=== PATIENT | male | born 1965 | race Caucasian/White ===

== ENCOUNTER 2018-01-19 10:17 | Observation (INO) ==
[2018-01-19] MEDS ORDERED: ASPIRIN 81 MG (BABY) CHEWABLE TABLET PO ONE (10:50)
[2018-01-19] MEDS ORDERED: Sodium Chloride 0.9% 1,000 ML PRIMARY IV ONE (10:50)
--- NOTE | 2018-01-19 11:00 | EKG ---
Measurements Intervals [place] Rate: 89 P: ND: 0 QRS: 69 QRSD: 95 T: 71 QT: 332 QTc: 379 Interpretive Statements ATRIAL FIBRILLATION ABNORMAL RHYTHM ECG No previous ECG available for comparison Electronically Signed On 01-19-18 12:22:43 MDT by Tutu Tijerina [email or web address]
[2018-01-19 11:31] LABS: BASOPHILS # (AUTO) 0.05 10*3/UL; BASOPHILS % (AUTO) 0.6 % (0-1); EOSINOPHILS # (AUTO) 0.18 10*3/UL; Hematocrit [HCT] 46.2 % (42.0-52.0); Hemoglobin [HGB] 16.1 g/dL (14.0-18.0); LYMPHOCYTES # (AUTO) 2.44 10*3/uL; MEAN CORPUSCULAR HEMOGLOBIN 31.8 PG (27-31); MEAN CORPUSCULAR HGB CONC 34.8 g/dL (33-37); MEAN CORPUSCULAR VOLUME 91.1 FL (80-90); MEAN PLATELET VOLUME 9.8 FL (7.4-12.2); MONOCYTES # (AUTO) 0.77 10*3/UL (0.3-0.8); MONOCYTES % (AUTO) 8.5 % (5-15); NEUTROPHILS % (AUTO) 61.8 % (50-80); RED BLOOD COUNT 5.07 10^6/uL (4.70-6.10)
[2018-01-19 11:35] LABS: BLOOD UREA NITROGEN 17 mg/dL (7-22); SERUM ALBUMIN 4.2 g/dL (3.5-4.8)
[2018-01-19 11:36] LABS: PLATELET MORPHOLOGY COMMENT NORMAL MORPHOLOGY (NORM); RBC MORPHOLOGY COMMENT NORMAL MORPHOLOGY (NORM); WBC MORPHOLOGY COMMENT NORMAL MORPHOLOGY (NORM)
--- NOTE | 2018-01-19 12:05 | DI ---
CT Head WO Contrast 01/19/2018 10:50 AM History: [facility] ^loss of consciousness Comparison: None. Procedure: Noncontrast axial, sagittal, and coronal CT images through the head were obtained. Findings: There is no intracranial hemorrhage or extra-axial fluid collection. The ventricles are nor mal in size and configuration. There is normal john-white differentiation without focal mass or mass- effect. There is mild mucosal thickening of the ethmoid air cells without sinus air-fluid levels. Orb its and facial soft tissues are unremarkable. Review of the osseous structures shows no depressed ca lvarial fracture or aggressive osseous lesion. The mastoid air cells are clear. Impression: No acute intracranial findings.
[2018-01-19 12:15] LABS: BILIRUBIN,URINE SMALL (NEG); CLARITY,URINE CLEAR (CLEAR); COLOR,URINE YELLOW (Y); GLUCOSE, URINE (UA) NEGATIVE (NEG); OCCULT BLOOD,URINE NEGATIVE (NEG); PH,URINE 5.5 (5.0-8.5); PROTEIN,URINE NEGATIVE (NEG); UROBILINOGEN,URINE 0.2 EU/dL (0.2)
[2018-01-19 12:29] LABS: AMPHETAMINE SCREEN NEGATIVE (NEG); CANNABINOID SCREEN,URINE NEGATIVE (NEG); COCAINE SCREEN NEGATIVE (NEG); METHADONE URINE SCREEN NEGATIVE (NEG); METHAMPHETAMINES SCREEN,URINE NEGATIVE (NEG); OPIATE SCREEN,URINE NEGATIVE (NEG); URINE SAMPLE TYPE VOIDED SPECIMEN; URINE SPECIFIC GRAVITY - MAN 1.024
--- NOTE | 2018-01-19 13:36 | PDOC ---
HPI - History of Present Illness History of Present Illness: This is a very nice 52-year-old gentleman who was brought into the ER because of a syncopal episode at work witnessed patient and was unresponsive and after he came about he did not remember anything of what happened. In the ER was found to have atrial fibrillation on EKG. I was called by Dr. Garcia to admit the patient. 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 He has known about his atrial fibrillation for about 2 years but has never taken any medication for. It. Apparently according to the ER nurses he also had 2 more syncopal episode in the emergency room before I seen him. After he was brought up to the floor he had a witnessed seizure in his room which lasted about 60 seconds and after that he also did not remember anything. His CPKs were within normal limits troponins are within normal limits. I did discuss the case with Dr. English neurology at [facility]. He recommended transfer to [facility] because of patient needing EEG, an echo, which I cannot perform here and also a cardiology workup to delineate if the causes of syncope which could be life-threatening are related to his seizures or his heart. I discussed this with the patient which agrees fully to be transferred and be worked up and come to the bottom of it since it is not the first time this has happened. 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 He just moved here from [place]. He was given 1500 mg of Ke[address]ra under Dr. English recommendation he was accepted by Dr. English and Dr. James of the hospitalist there was on the line. He was also given 1 dose of Cardizem 120 and eliquis 5 mg. Past Medical History Medical History: Atrial fibrillation, syncopal episodes Tobacco Use: Current Every Day Smoker Do you dip or chew tobacco: No In the Past 12 Months, Have Used or Abuse Any of the Following Substance: Methamphetamines Medication / Allergies Home Medications: Home Medications 3 Medication Instructions Recorded Confirmed Type Aspirin 325 mg PO BID 01/19/18 01/19/18 History Allergies/Adverse Reactions: Allergies 3 Allergy/AdvReac Type Severity Reaction Status Date / Time No Known Allergies Allergy Verified 01/19/18 11:33 Review of Systems - Review of Systems All Systems: Reviewed & No Additional Complaints Except as Stated - Mouth/Throat Mouth/Throat Exam: DENIES: Negative System Review, Dental Problems, Oral Ulcers , Sore Throat, Hoarseness, Dysphagia, Dental Pain, Other, See HPI - Cardiovascular Cardiovascular: REPORTS: Syncope - Gastrointestinal Gastrointestinal / Abdominal: DENIES: Negative System Review, Nausea, Vomiting, Diarrhea, Constipation, Abdominal Pain, Bloody Stool, Poor Appetite, Heartburn, Regurgitation, Bloating, Lactose Intolerance, Melena, Bright Red Blood per Rectum, Other, See HPI - Genitourinary Genitourinary: DENIES: Negative System Review, Pain, Burning, Hematuria, Incontinence, Urgency, Hesitant Stream, Decreased Stream, Nocutria, Discharge, Sexual Dysfunction, Other, See HPI - Neurological Neurologic: REPORTS: Seizures Exam - Vitals Vital Signs: Vital Signs Temperature 98.2 F Temperature Source Temporal Artery Scan Pulse Rate [Telemetry] 107 Pulse Rate [Apical] 107 Respiratory Rate 18 Blood Pressure [Left Arm] 123/111 Pulse Ox 96 Oxygen Delivery Method Room Air Height 6 ft 1 in Weight 214 lb - General General Appearance: No Acute Distress, Cooperative - Head Head Exam: Normal Inspection, Normocephalic, Atraumatic - Eye Eye Exam: POSITIVE: Normal Appearance, PERRL, EOMI, No Scleral Icterus - Neck Neck Exam: Normal Inspection, Full ROM, No Tenderness, No Lymphadenopathy, No Thyromegaly, JVP is not Raised - Respiratory Respiratory Exam: POSITIVE: Clear to Auscultation - Bilaterally, Breathing Non Labored, Normal To Percussion, Normal to Percussion and Palpation - Cardiovascular Cardiovascular Exam: POSITIVE: No Murmur, No Clicks, No Gallops, Irregular Rhythm, +S1, +S2 Additional Cardiovascular Details: Irregularly irregular - GI/Abdominal GI/Abdominal Exam: POSITIVE: Normal Bowel Sounds, Non Tender, Non Distended, Soft, No Masses, No Hepatomegaly, No Splenomegaly, No Organomegaly - Extremities Extremities Exam: POSITIVE: No Clubbing Present, No Edema Present, No Cyanosis Present - Neurological Neurological Exam: POSITIVE: Alert, Oriented x 3, No Facial Droop, Speech Intact / Clear, Moves All Extremities Equally Results - Labs CBC and BMP: 01/19/18 11:04 01/19/18 11:04 Assessment and Plan - Patient Problems (1) Atrial fibrillation Current Visit: Yes Status: Acute Comment: Cardizem by mouth one 20 mg, and eliquisfor stroke prophylaxis Code(s): I48.91 - Unspecified atrial fibrillation (2) Syncopal episodes Current Visit: Yes Status: Acute Comment: form maker Code(s): R55 - Syncope and collapse (3) Seizure disorder Current Visit: Yes Status: Acute Code(s): G40.909 - Epilepsy, unspecified, not intractable, without status epilepticus - Assessment / Plan Additional Assessment/Plan Details: Please see HPI
[2018-01-19] MEDS ORDERED: LIDOCAINE W/ SODIUM BICARB 0.5 ML SYR SUBD PRN (14:38)
[2018-01-19] MEDS ORDERED: DILTIAZEM HCL CD 120 MG CAP PO SCH (14:38)
[2018-01-19] MEDS ORDERED: Apixaban Tab 2.5 MG TABLET PO SCH (14:38)
[2018-01-19 15:09] VITALS: RESP 20
[2018-01-19] MEDS ORDERED: LORazepam 2 MG/1 ML VIAL IVP ONE (15:36)
[2018-01-19] MEDS ORDERED: LORazepam 1 MG TABLET PO ONE (15:36)
[2018-01-19] MEDS ORDERED: Sodium Chloride 0.9% 100 ML IV ONE (15:53)
--- NOTE | 2018-01-19 16:39 | DCSUMMARY ---
Hospitalization Summary Hospital Course: Final Discharge Diagnosis: Current Visit Problems Problem Status Onset Code Atrial fibrillation Acute I48.91 Syncopal episodes Acute R55 Seizure disorder Acute G40.909 Diagnostic Data, Laboratory Data, and Procedures of Signifigance: Laboratory Results 01/19/18 01/19/18 01/19/18 Range/Units 11:04 11:04 11:04 WBC 9.06 (4.8-10.8) 10^3/uL RBC 5.07 (4.70-6.10) 10^6/uL Hgb 16.1 (14.0-18.0) g/dL Hct 46.2 (42.0-52.0) % MCV 91.1 H (80-90) FL MCH 31.8 H (27-31) PG MCHC 34.8 (33-37) g/dL RDW Std Deviation 40.9 (39-50) fL RDW Coeff of Pattie 12.6 (11.5-14.5) % Plt Count 284 (140-350) 10*3/uL MPV 9.8 (7.4-12.2) FL Immature Gran % (Auto) 0.2 (0-5) % Neut % (Auto) 61.8 (50-80) % Lymph % (Auto) 26.9 (10-50) % Hendricks % (Auto) 8.5 (5-15) % Eos % (Auto) 2.0 (0-8) % Baso % (Auto) 0.6 (0-1) % Immature Gran # (Auto) 0.02 10*3/UL Neut # (Auto) 5.60 10*3/UL Lymph # (Auto) 2.44 10*3/uL Hendricks # (Auto) 0.77 (0.3-0.8) 10*3/UL Eos # (Auto) 0.18 10*3/UL Baso # (Auto) 0.05 10*3/UL WBC Morphology Comment Normal morphology (NORM) Plt Morphology Comment Normal morphology (NORM) RBC Morph Comment Normal morphology (NORM) PT 10.7 (9.7-11.4) secs INR 1.04 (0.00-5.90) N/A Sodium 140 (135-145) meq/L Potassium 4.3 (3.8-5.2) meq/L Chloride 109 (98-112) meq/L Carbon Dioxide 22 L (23-33) meq/L Anion Gap 9 (5-20) BUN 17 (7-22) mg/dL Creatinine 1.0 (0.70-1.50) mg/dL Estimated GFR > 60 (>60 ml/min/1.73m(2)) BUN/Creatinine Ratio 17.00 (6-20) Glucose 112 H (78-110) mg/dL Calculated Osmolality 292.0 (267-292) mOsm/kg Calcium 9.8 (8.7-10.7) mg/dL Magnesium (1.6-2.4) mg/dL Total Bilirubin 0.6 (0.3-1.2) mg/dL AST 18 L (21-57) IU/L ALT 33 (21-72) IU/L Alkaline Phosphatase 68 (38-126) IU/L Total Creatine Kinase 114 (55-170) IU/L CK-MB (CK-2) (0.00-5.00) NG/ML Troponin I (< 0.040) ng/mL Total Protein 7.1 (6.1-8.0) g/dL Albumin 4.2 (3.5-4.8) g/dL Globulin 2.9 (2.50-4.10) g/dL Albumin/Globulin Ratio 1.40 (1.3-2.0) mg/g TSH (0.2700-4.2000) uIU/mL Ur Collection Type Urine Color (Y) Urine Clarity (CLEAR) Urine pH (5.0-8.5) Ur Specific [place] (1.005-1.030) U Specif Grav (Refrac) Urine Protein (NEG) mg/dl Urine Glucose (UA) (NEG) mg/dL Urine Ketones (NEG) Urine Occult Blood (NEG) Urine Nitrate (NEG) Urine Bilirubin (NEG) Urine Urobilinogen (0.2) EU/dL Ur Leukocyte Esterase (NEG) Ur Culture Indicated? Urine Opiates Screen (NEG) Ur Buprenorphine (NEG) Ur Oxycodone Screen (NEG) Urine Methadone Screen (NEG) Ur Propoxyphene Screen (NEG) Barbiturate Screen (NEG) U Tricyclic Antidepress (NEG) Phencyclidine Screen (NEG) Amphetamines Screen (NEG) U Methamphetamines Scrn (NEG) Benzodiazepines Screen (NEG) Cocaine Screen (NEG) U Marijuana (THC) Screen (NEG) Serum Alcohol < 10 (0-10) mg/dL 01/19/18 01/19/18 01/19/18 Range/Units 11:04 11:04 11:20 WBC (4.8-10.8) 10^3/uL RBC (4.70-6.10) 10^6/uL Hgb (14.0-18.0) g/dL Hct (42.0-52.0) % MCV (80-90) FL MCH (27-31) PG MCHC (33-37) g/dL RDW Std Deviation (39-50) fL RDW Coeff of Pattie (11.5-14.5) % Plt Count (140-350) 10*3/uL MPV (7.4-12.2) FL Immature Gran % (Auto) (0-5) % Neut % (Auto) (50-80) % Lymph % (Auto) (10-50) % Hendricks % (Auto) (5-15) % Eos % (Auto) (0-8) % Baso % (Auto) (0-1) % Immature Gran # (Auto) 10*3/UL Neut # (Auto) 10*3/UL Lymph # (Auto) 10*3/uL Hendricks # (Auto) (0.3-0.8) 10*3/UL Eos # (Auto) 10*3/UL Baso # (Auto) 10*3/UL WBC Morphology Comment (NORM) Plt Morphology Comment (NORM) RBC Morph Comment (NORM) PT (9.7-11.4) secs INR (0.00-5.90) N/A Sodium (135-145) meq/L Potassium (3.8-5.2) meq/L Chloride (98-112) meq/L Carbon Dioxide (23-33) meq/L Anion Gap (5-20) BUN (7-22) mg/dL Creatinine (0.70-1.50) mg/dL Estimated GFR (>60 ml/min/1.73m(2)) BUN/Creatinine Ratio (6-20) Glucose (78-110) mg/dL Calculated Osmolality (267-292) mOsm/kg Calcium (8.7-10.7) mg/dL Magnesium (1.6-2.4) mg/dL Total Bilirubin (0.3-1.2) mg/dL AST (21-57) IU/L ALT (21-72) IU/L Alkaline Phosphatase (38-126) IU/L Total Creatine Kinase (55-170) IU/L CK-MB (CK-2) (0.00-5.00) NG/ML Troponin I < 0.012 (< 0.040) ng/mL Total Protein (6.1-8.0) g/dL Albumin (3.5-4.8) g/dL Globulin (2.50-4.10) g/dL Albumin/Globulin Ratio (1.3-2.0) mg/g TSH 1.40 (0.2700-4.2000) uIU/mL Ur Collection Type Voided specimen Urine Color Yellow (Y) Urine Clarity Clear (CLEAR) Urine pH 5.5 (5.0-8.5) Ur Specific [place] >=1.030 (1.005-1.030) U Specif Grav (Refrac) 1.024 Urine Protein Negative (NEG) mg/dl Urine Glucose (UA) Negative (NEG) mg/dL Urine Ketones Trace A (NEG) Urine Occult Blood Negative (NEG) Urine Nitrate Negative (NEG) Urine Bilirubin Small (NEG) Urine Urobilinogen 0.2 (0.2) EU/dL Ur Leukocyte Esterase Negative (NEG) Ur Culture Indicated? Culture not set Urine Opiates Screen Negative (NEG) Ur Buprenorphine Negative (NEG) Ur Oxycodone Screen Negative (NEG) Urine Methadone Screen Negative (NEG) Ur Propoxyphene Screen Negative (NEG) Barbiturate Screen Negative (NEG) U Tricyclic Antidepress Negative (NEG) Phencyclidine Screen Negative (NEG) Amphetamines Screen Negative (NEG) U Methamphetamines Scrn Negative (NEG) Benzodiazepines Screen Negative (NEG) Cocaine Screen Negative (NEG) U Marijuana (THC) Screen Negative (NEG) Serum Alcohol (0-10) mg/dL 01/19/18 01/19/18 01/19/18 Range/Units 14:56 14:56 14:56 WBC (4.8-10.8) 10^3/uL RBC (4.70-6.10) 10^6/uL Hgb (14.0-18.0) g/dL Hct (42.0-52.0) % MCV (80-90) FL MCH (27-31) PG MCHC (33-37) g/dL RDW Std Deviation (39-50) fL RDW Coeff of Pattie (11.5-14.5) % Plt Count (140-350) 10*3/uL MPV (7.4-12.2) FL Immature Gran % (Auto) (0-5) % Neut % (Auto) (50-80) % Lymph % (Auto) (10-50) % Hendricks % (Auto) (5-15) % Eos % (Auto) (0-8) % Baso % (Auto) (0-1) % Immature Gran # (Auto) 10*3/UL Neut # (Auto) 10*3/UL Lymph # (Auto) 10*3/uL Hendricks # (Auto) (0.3-0.8) 10*3/UL Eos # (Auto) 10*3/UL Baso # (Auto) 10*3/UL WBC Morphology Comment (NORM) Plt Morphology Comment (NORM) RBC Morph Comment (NORM) PT (9.7-11.4) secs INR (0.00-5.90) N/A Sodium (135-145) meq/L Potassium (3.8-5.2) meq/L Chloride (98-112) meq/L Carbon Dioxide (23-33) meq/L Anion Gap (5-20) BUN (7-22) mg/dL Creatinine (0.70-1.50) mg/dL Estimated GFR (>60 ml/min/1.73m(2)) BUN/Creatinine Ratio (6-20) Glucose (78-110) mg/dL Calculated Osmolality (267-292) mOsm/kg Calcium (8.7-10.7) mg/dL Magnesium 2.0 (1.6-2.4) mg/dL Total Bilirubin (0.3-1.2) mg/dL AST (21-57) IU/L ALT (21-72) IU/L Alkaline Phosphatase (38-126) IU/L Total Creatine Kinase (55-170) IU/L CK-MB (CK-2) 1.96 (0.00-5.00) NG/ML Troponin I < 0.012 (< 0.040) ng/mL Total Protein (6.1-8.0) g/dL Albumin (3.5-4.8) g/dL Globulin (2.50-4.10) g/dL Albumin/Globulin Ratio (1.3-2.0) mg/g TSH (0.2700-4.2000) uIU/mL Ur Collection Type Urine Color (Y) Urine Clarity (CLEAR) Urine pH (5.0-8.5) Ur Specific [place] (1.005-1.030) U Specif Grav (Refrac) Urine Protein (NEG) mg/dl Urine Glucose (UA) (NEG) mg/dL Urine Ketones (NEG) Urine Occult Blood (NEG) Urine Nitrate (NEG) Urine Bilirubin (NEG) Urine Urobilinogen (0.2) EU/dL Ur Leukocyte Esterase (NEG) Ur Culture Indicated? Urine Opiates Screen (NEG) Ur Buprenorphine (NEG) Ur Oxycodone Screen (NEG) Urine Methadone Screen (NEG) Ur Propoxyphene Screen (NEG) Barbiturate Screen (NEG) U Tricyclic Antidepress (NEG) Phencyclidine Screen (NEG) Amphetamines Screen (NEG) U Methamphetamines Scrn (NEG) Benzodiazepines Screen (NEG) Cocaine Screen (NEG) U Marijuana (THC) Screen (NEG) Serum Alcohol (0-10) mg/dL History and Physical pertinent to Admission: Course of Hospitalization: See HPI secondary of discharge Vitals reviewed and are listed below Assessment and Plan: 1. As per discharge assessments above 2. Disposition: Transferred to [facility] under the recommendation of nerve neurology after [facility] who accepted the patient 3. Condition on discharge, stable 4. Diet: regular diet 5. Activities: resume normal activities 6. Follow-Up: 1. [PCP] 2. 7. Medications at the Time of Discharge: Active Medications Generic Name Dose Route Start Last Admin Trade Name Freq PRN Reason Stop Dose Admin Apixaban 5 mg 01/19/18 21:00 Eliquis PO BID ALAN Diltiazem HCl 120 mg 01/19/18 14:38 01/19/18 15:26 Cardizem Cd PO 120 mg DAILY ALAN Administration Sodium Chloride 25 mls @ 200 mls/hr 01/19/18 14:38 Normal Saline 0.9% IV .Post Infusion PRN Flush Levetiracetam 500 mg/ Sodium 105 mls @ 400 mls/hr 01/19/18 15:45 01/19/18 16: 19 Chloride IV 400 mls/hr BID ALAN Administration Lidocaine HCl 0.5 ml 01/19/18 14:38 Lidocaine Buffered Inj SUBD ONCE PRN IV Starts 8. Time, care, counseling and coordination of care for this discharge is greater than 30 minutes. Exam - Vitals Vital Signs: Vital Signs Temperature 98.0 F Temperature Source Temporal Artery Scan Pulse Rate [Telemetry] 106 Pulse Rate [Apical] 102 Respiratory Rate 20 Blood Pressure [Left Arm] 141/104 Pulse Ox 96 Oxygen Delivery Method Room Air Height 6 ft 1 in Weight 214 lb Patient Problems - Patient Problem List (1) Atrial fibrillation Current Visit: Yes Status: Acute Code(s): I48.91 - Unspecified atrial fibrillation Category: Medical (2) Syncopal episodes Current Visit: Yes Status: Acute Code(s): R55 - Syncope and collapse Category: Medical (3) Seizure disorder Current Visit: Yes Status: Acute Code(s): G40.909 - Epilepsy, unspecified, not intractable, without status epilepticus Category: Medical
[2018-01-19 17:33] VITALS: BP 137/89; TEMP 97.4; O2SAT 97
[2018-01-19] MEDS ORDERED: Apixaban 5 MG TABLET PO SCH (21:00)
--- NOTE | 2018-01-20 04:08 | PDOC ---
General Adult HPI - General Chief Complaint: Palpitations Stated Complaint: loss of consciousness; atrial fibrillation Date Seen by Provider: 01/19/18 Time Seen by Provider: 10:25 Source: POSITIVE: Patient, EMS Exam Limitations: POSITIVE: No limitations Nurse's Notes Reviewed & Considered: Yes EMS Report Reviewed & Considered: Verbal - History of Present Illness Initial Comment: The patient is a 52-year-old male. The patient is brought by ambulance from the [facility]. 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 He states that around 9 AM he was at work and had a loss of consciousness. He states that he "found myself on the floor ". Bystanders paged the ambulance and reportedly bystanders reported to the paramedics that the patient had a seizure. Upon arrival of the paramedics, the patient declined transport and went to the [facility] clinic for further evaluation. At the clinic he was found to be in atrial fibrillation with a ventricular response of around 107. They then sent the patient by ambulance to the emergency room. Patient states he has a history of hypertension and a known history of atrial fibrillation and states he was on "blood pressure medicines and an anticoagulant "but he discontinued these medications 6 months ago because "they made me feel bad". Patient has a history of methamphetamine abuse but states he 's not had any methamphetamine for year. He also has a history of alcohol abuse but states he's not had any alcohol for a month. He states that he has had 3 similar episodes of "waking up on the floor "in the past 8 months. At this time the patient is asymptomatic. He denies any head chest or abdominal pain. No dyspnea. No focal neurologic symptoms. No GI or symptoms. Have you received a tetanus shot in the past 10 years?: Yes Body Location Affected: REPORTS: Chest (Atrial fibrillation, untreated), Other ( Loss of consciousness; reported "seizure ") Timing: REPORTS: Abrupt (Loss of consciousness abrupt at 9 AM), Other (Known history of atrial fibrillation; untreated) Duration: Other (Loss of consciousness) Quality: REPORTS: Other (Patient denies any pain anywhere) Context: REPORTS: Standing (At work) Modifying Factors: improves with: Nothing Similar Symptoms Previously: Yes (3 similar episodes in the past 8 months) Recent Care Received: REPORTS: Denies Any Prior Injuries Related to Current Complaint?: No - Patient Home Medications Home Medications: Home Medications Aspirin 325 mg PO BID 01/19/18 - Patient Allergies Allergies/Adverse Reactions: Allergies 3 Allergy/AdvReac Type Severity Reaction Status Date / Time No Known Allergies Allergy Verified 01/19/18 11:33 Past Medical History - heen HEENT History: Denies History Cardiovascular History: Hypertension, Arrhythmia Additional Cardiovasular History: AFIB, STOPPED TAKING B/P MED AND ANTICOAGULANT ABOUT 6 MONTHS AGO Respiratory History: Denies History Gastrointestinal History: Denies History Genitourinary History: Denies History Endocrine History: Denies History Musculoskeletal History: Denies History Prosthesis or Implant: No Neurological History: Seizures Additional Neurological History: PT REPORTS FREQUENT BLACKOUT EPISODES IN THE PAST, STATES ONLY HAS HAD 3 EPISODES SINCE QUITTING METH USE ABOUT A YEAR AGO. Blood Disorders: Denies History Psychiatric History: Substance Abuse Male Reproductive History: Denies History Cancer History: Denies History In Past Year Been Physically Harmed or Verbally Threatened: No History of MDRO: No Tobacco Use: Current Every Day Smoker In the Past 12 Months, Have Used or Abuse Any Substance: Methamphetamines Previous Surgical History: No Significant Family History: Hypertension Additional Family History: Paternal HTN and heart attack age 68 Past Medical History Reviewed: Reviewed - No Changes ROS - Limitations ROS Limitations: No Limitations Constitution: REPORTS: Denies Symptoms Cardiovascular: REPORTS: Other (Irregularly irregular rhythm; history of atrial fibrillation, not presently being treated) Respiratory: REPORTS: Denies Resp Symptoms Neurological: REPORTS: Other (Loss of consciousness approximately 1-1/2 hours [employer]IMAT[employer] TE[employer] as above) Gastrointestinal: REPORTS: Denies GI Symptoms Endocrine: REPORTS: Denies Symptoms Musculoskeletal: REPORTS: Denies MS Symptoms Genitourinary: REPORTS: Denies Symptoms ENT: REPORTS: Denies Symptoms Skin: REPORTS: Denies Skin Symptoms Lympathic: REPORTS: Denies Lympathic Symptoms Immunologic: POSITIVE: Denies Symptoms Psychiatric: POSITIVE: Denies Psych Symptoms General Adult Exam - General Appearance General Appearance: POSITIVE: Alert, Cooperative, No Acute Distress, No Evidence of Trauma - HEENT HEENT: POSITIVE: Head Inspection Nml, Eyes Inspection Nml, Ears Inspection Nml, Nose Inspection Nml, Oral/Dental Inspect. Nml, Pharynx Inspect. Nml, PERRL, EOMI - Pupils Pupil Size: 3 mm: Bilateral - Neck Neck: POSITIVE: Normal Inspection, Thyroid Normal - Respiratory Respiratory: POSITIVE: No Respiratory Distress, Breath Sounds Normal, Chest Non- Tender - Cardiovascular Cardiovascular: POSITIVE: No Murmur, No Gallop, PMI Normal, Irregularly Irreg. Rhythm. NEGATIVE: Regular Rate & Rhythm, Decreased Pulse, No Pulse, Tachycardia , Occasional Extrasystoles, Frequent Extrasystoles, PMI Displaced Laterally, JVD Present, Murmur, S3 Gallop, S4 Gallop, Bradycardia, Friction Rub Peripheral Pulses: Radial (R): 2+, Radial (L): 2+ - Abdomen Abdomen: Soft: (All Quadrants), Normal Bowel Sounds: (All Quadrants), Denies Tenderness: (All Quadrants), No Splenomegaly: (All Quadrants), No Hepatomegaly: (All Quadrants), No Guarding: (All Quadrants), No Rebound: (All Quadrants), No Palpable Pulse: (All Quadrants), No Palpabale Mass: (All Quadrants), No Distention: (All Quadrants), No Rigidity: (All Quadrants) - Back Back: POSITIVE: Normal Inspection - Skin Skin: POSITIVE: Normal Color, Warm, Dry, No Rash - Extremities Extremity: Non-Tender: (All Extremities), Normal ROM: (All Extremities), Normal Inspection: (All Extremities) - Neurological / Psychological Neurological: POSITIVE: Oriented X3, river rat Normal As Tested, Motor Normal, Sensation Normal, 5, 6 General Adult Progress - Results Reviewed by me Xrays/CTs/US Reviewed by me: Yes Discussed with Radiologist: Yes Radiology Findings: CT scan without contrast normal Lab Results Reviewed by Me: Yes Lab Results:: Laboratory Results 3 01/19/18 01/19/18 01/19/18 11:04 11:04 11:04 WBC 9.06 RBC 5.07 Hgb 16.1 Hct 46.2 MCV 91.1 H MCH 31.8 H MCHC 34.8 RDW Std Deviation 40.9 RDW Coeff of Pattie 12.6 Plt Count 284 MPV 9.8 Immature Gran % (Auto) 0.2 Neut % (Auto) 61.8 Lymph % (Auto) 26.9 [place] % (Auto) 8.5 Eos % (Auto) 2.0 Baso % (Auto) 0.6 Immature Gran # (Auto) 0.02 Neut # (Auto) 5.60 Lymph # (Auto) 2.44 [place] # (Auto) 0.77 Eos # (Auto) 0.18 Baso # (Auto) 0.05 WBC Morphology Comment Normal morphology Plt Morphology Comment Normal morphology RBC Morph Comment Normal morphology PT 10.7 INR 1.04 Sodium 140 Potassium 4.3 Chloride 109 Carbon Dioxide 22 L Anion Gap 9 BUN 17 Creatinine 1.0 Estimated GFR > 60 BUN/Creatinine Ratio 17.00 Glucose 112 H Calculated Osmolality 292.0 Calcium 9.8 Total Bilirubin 0.6 AST 18 L ALT 33 Alkaline Phosphatase 68 Total Creatine Kinase 114 Troponin I Total Protein 7.1 Albumin 4.2 Globulin 2.9 Albumin/Globulin Ratio 1.40 TSH Ur Collection Type Urine Color Urine Clarity Urine pH Ur Specific [place] U Specif Grav (Refrac) Urine Protein Urine Glucose (UA) Urine Ketones Urine Occult Blood Urine Nitrate Urine Bilirubin Urine Urobilinogen Ur Leukocyte Esterase Ur Culture Indicated? Urine Opiates Screen Ur Buprenorphine Ur Oxycodone Screen Urine Methadone Screen Ur Propoxyphene Screen Barbiturate Screen U Tricyclic Antidepress Phencyclidine Screen Amphetamines Screen U Methamphetamines Scrn Benzodiazepines Screen Cocaine Screen U Marijuana (THC) Screen Serum Alcohol < 10 3 01/19/18 01/19/18 01/19/18 11:04 11:04 11:20 WBC RBC Hgb Hct MCV MCH MCHC RDW Std Deviation RDW Coeff of Pattie Plt Count MPV Immature Gran % (Auto) Neut % (Auto) Lymph % (Auto) [place] % (Auto) Eos % (Auto) Baso % (Auto) Immature Gran # (Auto) Neut # (Auto) Lymph # (Auto) [place] # (Auto) Eos # (Auto) Baso # (Auto) WBC Morphology Comment Plt Morphology Comment RBC Morph Comment PT INR Sodium Potassium Chloride Carbon Dioxide Anion Gap BUN Creatinine Estimated GFR BUN/Creatinine Ratio Glucose Calculated Osmolality Calcium Total Bilirubin AST ALT Alkaline Phosphatase Total Creatine Kinase Troponin I < 0.012 Total Protein Albumin Globulin Albumin/Globulin Ratio TSH 1.40 Ur Collection Type Voided specimen Urine Color Yellow Urine Clarity Clear Urine pH 5.5 Ur Specific [place] >=1.030 U Specif Grav (Refrac) 1.024 Urine Protein Negative Urine Glucose (UA) Negative Urine Ketones Trace A Urine Occult Blood Negative Urine Nitrate Negative Urine Bilirubin Small Urine Urobilinogen 0.2 Ur Leukocyte Esterase Negative Ur Culture Indicated? Culture not set Urine Opiates Screen Negative Ur Buprenorphine Negative Ur Oxycodone Screen Negative Urine Methadone Screen Negative Ur Propoxyphene Screen Negative Barbiturate Screen Negative U Tricyclic Antidepress Negative Phencyclidine Screen Negative Amphetamines Screen Negative U Methamphetamines Scrn Negative Benzodiazepines Screen Negative Cocaine Screen Negative U Marijuana (THC) Screen Negative Serum Alcohol CBC and BMP: 01/19/18 11:04 01/19/18 11:04 EKG Interpreted/Reviewed By Me:: Yes (atrial fibrillation with a ventricular response of 107/m) EKG Interpretation:: POSITIVE: Normal Intervals, Normal [place], Normal QRS, Normal ST/T, Abnormal EKG (Atrial fibrillation with ventricular response of 107/ m). NEGATIVE: Normal Sinus Rhythm, Normal Rate (Ventricular response of 107/m) - Patient's Progress Pain Medication Addressed: POSITIVE: Not Applicable School/Work Release Addressed: POSITIVE: Not Applicable Re-Examine Time: 13:20 Re-Examine Comment: Patient remained asymptomatic in the emergency room. Patient was advised he needs to have his atrial fibrillation treated and probably placed on an anticoagulant. Patient also advised that I'm not sure what the source of his loss of consciousness was; possible seizure. Status: POSITIVE: Unchanged, Re-Examined Antibiotics Given: No CVA/Syncope: POSITIVE: EKG - Consult Consult (If Yes, Name of Consulting MD & Time Called): Yes (Dr. Coulter, [id number]) Consulting MD will see pt:: POSITIVE: [facility] [place] Admit Counseled: POSITIVE: Patient, RE: Lab Results, RE: Radiology Results, RE: DX, RE : Need for F/U Patient Care Time - Estimated PCT Patient Care Time (In Minutes): 50 Vital Signs - VS Reviewed Vital Signs Reviewed: Yes Discharge Clinical Impression: Atrial fibrillation, Syncopal episodes Discharge Disposition: Admit to Inpatient Condition: Fair Date Decision to Admit to Inpatient: 01/19/18 Time Decision to Admit to Inpatient: 13:20
== END 2018-01-19 17:50 | disposition short-term general hospital (02) ==
LOC: MED/SURG 10:17 → ER 10:17
PROVIDERS: ADMIT Internal Medicine; ATTEND Internal Medicine